=== PATIENT | male | born 1965 | race Caucasian/White ===

== ENCOUNTER → 2021-10-10 | Outpatient (CLI) | payer OTHER ==
[2021-10-10 13:07] LABS: URINE APPEARANCE CLEAR; URINE BILIRUBIN NEGATIVE (NEGATIVE); URINE BLOOD NEGATIVE (NEGATIVE); URINE COLOR YELLOW; URINE GLUCOSE NEGATIVE (NEGATIVE); URINE KETONE NEGATIVE (NEGATIVE); URINE LEUKOCYTE ESTERASE NEGATIVE (NEGATIVE); URINE MUCUS PRESENT (NOT PRESENT); URINE NITRATE NEGATIVE (NEGATIVE); URINE PROTEIN(semi-quant) TRACE (NEGATIVE); URINE UROBILINOGEN NORMAL (NORMAL); URINE WBC 0-1 /hpf (0-3)
== END ==
LOC: LAB 11:23
PROVIDERS: Family Medicine
DX: R30.9 Painful micturition, unspecified (principal)

== ENCOUNTER → 2021-11-08 | Outpatient (CLI) | payer OTHER | LOC: LAB 11:02 | DX: N42.89 Other specified disorders of prostate (principal); K92.1 Melena; K64.8 Other hemorrhoids ==

== ENCOUNTER → 2022-01-18 | Outpatient (CLI) | payer OTHER | LOC: RAD 09:54 | DX: K57.30 Diverticulosis of large intestine without perforation or abscess without bleeding (principal) | CPT/HCPCS: Q9967 ==

== ENCOUNTER 2022-04-01 12:31 | Emergency (ER) | payer OTHER ==
[2022-04-01 15:22] VITALS: BP 117/83
== END 2022-04-01 15:20 ==
LOC: ED 12:31
DX: S09.90XA Unspecified injury of head, initial encounter (principal); S01.81XA Laceration without foreign body of other part of head, initial encounter; S01.411A Laceration without foreign body of right cheek and temporomandibular area, initial encounter; Z28.310 Unvaccinated for COVID-19; Z23 Encounter for immunization; Y04.0XXA Assault by unarmed brawl or fight, initial encounter
CPT/HCPCS: 90715